=== PATIENT | female | born 2005 | race Hispanic/Latino ===

== ENCOUNTER 2023-12-11 14:12 | Emergency (ER) | payer OTHER ==
[~2023-12-11] VITALS: Ht 154.9 cm; Wt 46.7 kg
[2023-12-11 14:17] VITALS: BP 114/78
[2023-12-11 14:20] VITALS: BP 116/81
[2023-12-11 14:40] VITALS: BP 111/78
[2023-12-11 14:54] VITALS: BP 111/78
== END 2023-12-11 14:55 | disposition home or self-care (01) | DRG 603 ==
LOC: ED 14:12
PROC: 0H9FXZZ Drainage of Right Hand Skin, External Approach (ICD-10-PCS; principal; 2023-12-11)
DX: L02.511 Cutaneous abscess of right hand (principal)

== ENCOUNTER 2024-03-30 10:07 | Emergency (ER) | payer OTHER ==
[~2024-03-30] VITALS: Ht 154.9 cm; Wt 50.0 kg
[2024-03-30 10:29] LABS: URINE BILIRUBIN - DIPSTICK Negative (NEGATIVE); URINE BLOOD DIPSTICK Moderate (NEGATIVE); URINE GLUCOSE - DIPSTICK Negative (NEGATIVE); URINE KETONE Negative (NEGATIVE); URINE LEUK ESTERASE Trace (NEGATIVE); URINE NITRITE - DIPSTICK Negative (Negative); URINE PH 5.5 (4.5-8.0); URINE PROTEIN - DIPSTICK Negative (NEG-TRACE); URINE UROBILINOGEN - DIPSTICK 0.2 E.U./dL (0.2)
[2024-03-30 10:31] LABS: URINE COLOR Yellow
[2024-03-30 10:39] LABS: URINE BACTERIA FEW hpf; URINE SQUAMOUS EPITHELIAL CELL MODERATE EPI/hpf (0-FEW)
[2024-03-30 10:52] LABS: BASO% 0.6 % (0-3); EOS% 1.3 % (0-8); HEMATOCRIT 43.3 % (37.0-47.0); HEMOGLOBIN 14.4 g/dl (12.0-16.0); IMMATURE GRANULOCYTES 0.1 % (0.0-5.0); LYMPH% 26.5 % (15-41); MEAN CELL VOLUME 92.5 fL CALC (80.0-100.0); MEAN CORPUSCULAR HGB 30.8 pG CALC (26.0-32.0); MEAN CORPUSCULAR HGB CONC 33.3 g/dL CAL (32.0-36.0); MONO% 7.7 % (2-13); NEUT# 5.51 thou/uL (2.00-7.15); NEUT% 63.8 % (42-76); RED BLOOD COUNT 4.68 mill/uL (4.20-5.60); RED CELL DISTRI WIDTH 11.7 % (11.5-15.5)
[2024-03-30 11:07] LABS: ALBUMIN 4.7 g/dL (3.2-5.0); BILIRUBIN, TOTAL 0.5 mg/dL (0.02-1.3); CREATININE 0.6 mg/dL (0.5-1.0)
[2024-03-30 11:08] LABS: POTASSIUM 3.8 mmol/l (3.5-5.1)
[2024-03-30 13:16] VITALS: BP 126/86
== END 2024-03-30 13:10 | disposition home or self-care (01) | DRG 833 ==
LOC: ED 10:07
PROVIDERS: Family Medicine
DX: O46.91 Antepartum hemorrhage, unspecified, first trimester (principal); Z3A.01 Less than 8 weeks gestation of pregnancy